=== PATIENT | female | born 1975 | race Caucasian/White ===

== ENCOUNTER 2017-08-12 08:52 | Emergency (ER) | payer MEDICAID, SELFPAY ==
[2017-08-12 09:02] VITALS: BP 109/76; PULSE 87; RESP 18; TEMP 36.4; O2SAT 98; BMI 25.0
--- NOTE | 2017-08-12 09:09 | [facility].EDGENADL ---
ED Disposition Clinical Impression: Postoperative stitch abscess Disposition: Home, Self-Care Condition on Discharge: Good Additional Instructions: You are being provided with a list of physicians available for follow-up of your condition. Please call a physician on this list to arrange a follow-up appointment as soon as possible. Ibuprofen for pain. See your surgeon if redness around incision, fever. Prescriptions: cephALEXin [Keflex 500mg Cap] 500 mg PO QID #40 cap - Critical Care Critical Care Time: No Attestation: On , the high probability of a clinically significant, sudden or life threatening deterioration of the following system(s) required my full and direct attention, intervention and personal management. The time I documented below is in addition to time spent performing reported procedures but includes the following listed in this critical care notation. Medical Decision Making Vital Signs: 08/12/17 09:02 08/12/17 12:17 Temperature 97.6 F 97.8 F Temperature Source Oral Temporal Artery Scan Pulse Rate 75 Pulse Rate [Right Brachial] 87 Respiratory Rate 18 18 Blood Pressure 107/45 Blood Pressure [Right Arm] 109/76 Blood Pressure Mean [Right Arm] 87 Blood Pressure Source Automatic Cuff Blood Pressure Source [Right Arm] Automatic Cuff Blood Pressure Position Sitting Blood Pressure Position [Right Arm] Sitting 02 Sat by Pulse Oximetry 98 Oxygen Delivery Method Room Air Room Air - Lab Data Lab Results 08/12/17 10:05: WBC 6.6, RBC 4.13 L, Hgb 12.9, Hct 38.5, MCV 93.1, MCH 31.2, MCHC 33.5, RDW 13.0, Plt Count 299, MPV 7.1 L, Neut % (Auto) 50.4, Lymph % (Auto) 37.7, [place] % (Auto) 6.4, Eos % (Auto) 4.7, Baso % (Auto) 0.8, Neut # (Auto) 3.3, Lymph # (Auto) 2.5, [place] # (Auto) 0.4, Eos # (Auto) 0.3, Baso # (Auto) 0.1 08/12/17 10:05: Sodium 139, Potassium 3.9, Chloride 105, Carbon Dioxide 25, Anion Gap 12.9, BUN 10, Creatinine 0.63, Estimated Creat Clear 131, Estimated GFR 103, Est GFR ( Amer) 124, Glucose 111 H, Calcium 8.6, Total Bilirubin 0.3, AST 44 H, ALT 77, Alkaline Phosphatase 85, Total Protein 7.6, Albumin 3.6, Globulin 4.0 H, Albumin/Globulin Ratio 0.9 L 08/12/17 10:05: Lipase 100 08/12/17 11:55: Urine Color Yellow, Urine Appearance Clear, Urine pH 6.0, Ur Specific [place] 1.010, Urine Protein Negative, Urine Glucose (UA) Negative, Urine Ketones Negative, Urine Blood Negative, Urine Nitrate Negative, Urine Bilirubin Negative, Urine Urobilinogen 0.2, Ur Leukocyte Esterase Negative, Urine RBC None, Urine WBC None, Ur Squamous Epith Cells Occasional, Urine Bacteria Trace Result diagrams: 08/12/17 10:05 08/12/17 10:05 - CT Data CT Scan: Abdomen, Pelvis Time Received: 11:[address] Reviewed: Yes: I have viewed the radiologist's interpretation Findings Narrative: CT scan interpreted by radiologist: Mild stranding in the periumbilical soft tissue, no abscess. Distended urinary bladder. - Asa Inquiry Pt receiving controlled substance: No General Adult HPI - General Chief complaint: Skin/Abscess/Foreign Body Stated complaint: surgery 3wks ago incision spot red and puffy oozy Mode of Arrival: Ambulatory Limitations: No Limitations Description of Symptoms (Recalled from ER Triage Doc. by RN): gb surgery x 3 weeks ago; has been packing open wound to abd for 3 weeks; took. packing out today and is concerned with appearance of wound - History of Present Illness HPI narrative: Patient had emergency gallbladder surgery just before [place] in [facility]. She says that they had to make an extra incision in her midline which was left open. She has been packing it ever since then. She says that she does not want to go back to see the surgeon who did the surgery. She says that they told her if it got red or painful to come to the emergency room. She says that she has had some redness around that wound and had pus draining from it this morning. She points to t
--- NOTE | 2017-08-12 09:22 | CT_ITS ---
CT abdomen pelvis wo con CLINICAL INDICATION: Recent surgery with abdominal pain with cutaneous erythema, drainage and fever ITS.REASON: post op pain ORDERING PHYSICIAN: Giles Ford MD PATIENT AGE: 42 years COMPARISON: None TECHNIQUE: Axial images obtained with sagittal and coronal reformats. PROCEDURE: Oral Contrast: None IV Contrast: None . FINDINGS: No acute finding in the lung bases. Prior cholecystectomy without ductal dilatation. The liver, spleen, adrenal glands, pancreas, kidneys and ureters have an unremarkable appearance. No intestinal structure or free air. Unremarkable appendix no evidence of diverticulitis. Urinary bladder is distended no obvious bladder calculi. There is mild stranding of the fat in the anterior abdominal wall at the umbilical region. There is some minimal infiltration of the fat in the peritoneum just deep to this area. No obvious drainable abscess. No abnormal fluid collections or acute bony anomalies. IMPRESSION: 1. There is some mild stranding of the fat cutaneous region of the umbilical area and within the peritoneum deep to this region suggesting underlying inflammation. No abscess apparent 2. Distended urinary bladder.
[2017-08-12 10:16] LABS: Basophils # 0.1 K/mm3 (0-0.2); Basophils % 0.8 % (0.1-2.0); Eosinophils # 0.3 K/mm3 (0.0-0.4); Eosinophils % 4.7 % (0.1-12.0); Hematocrit 38.5 % (37.0-47.0); Hemoglobin 12.9 g/dL (12.2-16.2); Lymphocytes # 2.5 K/mm3 (0.7-4.5); Lymphocytes % 37.7 K/mm3 (10-50); Mean Corpuscular HGB Conc 33.5 g/dL (31.8-35.4); Mean Corpuscular Hemoglobin 31.2 pg (27.0-31.2); Mean Corpuscular Volume 93.1 fl (81-99); Mean Platelet Volume 7.1 fl (7.4-10.4); Monocytes # 0.4 K/mm3 (0.1-1.0); Monocytes % 6.4 % (1.7-9.3); Neutrophils # 3.3 K/mm3 (1.8-7.8); Neutrophils % 50.4 % (37.0-80.0); Platelet Count 299 K/mm3 (142-424); Red Blood Count 4.13 M/mm3 (4.20-5.40); White Blood Count 6.6 K/mm3 (4.8-10.8)
[2017-08-12 10:22] LABS: Lipase 100 u/L (73-393)
[2017-08-12 10:29] LABS: Alanine Aminotransferase 77 U/L (12-78); Albumin Level 3.6 gm/dL (3.4-5.0); Albumin/Globulin Ratio 0.9 (1.1-1.8); Alkaline Phosphatase 85 U/L (46-116); Anion Gap 12.9 mEq/L (5-15); Aspartate Amino Transferase 44 U/L (15-37); Bilirubin,Total 0.3 mg/dL (0.2-1.0); Blood Urea Nitrogen 10 mg/dL (7-18); Calcium 8.6 mg/dL (8.5-10.1); Carbon Dioxide 25 mmol/L (21.0-32.0); Chloride 105 mmol/L (98-107); Creatinine Clearance Estimated 131 mL/min (0-300); Creatinine,Serum 0.63 mg/dL (0.55-1.02); Estimated Glomerular Filt Rate 103 ml/min (>60); GFR (African American) 124 ML/MIN (>60); Glucose 111 mg/dL (74-106); Sodium 139 mmol/L (136-145); Total Protein,Serum 7.6 gm/dL (6.4-8.2)
[2017-08-12 10:31] LABS: Potassium 3.9 mmoL/L (3.5-5.1)
[2017-08-12 11:57] LABS: Appearance,Urine CLEAR (Clear); Bilirubin,Urine Negative (Negative); Blood, Urine Negative (Negative); Color,Urine YELLOW (Yellow); Glucose,Urine (UA) Negative (Negative); Ketones,Urine Negative (Negative); Leukocyte Esterase,Urine Negative (Negative); Microscopic, Urine URINE MICROSCOPIC (MICROSCOPIC); Nitrate,Urine Negative (Negative); Protein,Urine Negative (Negative); Urobilinogen,Urine 0.2 EU/dl (0.2)
[2017-08-12 12:14] LABS: Bacteria,Urine Trace /lpf; Squamous Epithelial Cell,Urine Occasional #/hpf (0-5)
[2017-08-12 12:17] VITALS: BP 107/45; PULSE 75; RESP 18; TEMP 36.6; O2SAT 99
== END 2017-08-12 12:17 | disposition home or self-care (01) ==
PROVIDERS: Emergency Provider Emergency Medicine
DX: T81.4XXA Infection following a procedure, initial encounter (principal); L02.211 Cutaneous abscess of abdominal wall; Z90.49 Acquired absence of other specified parts of digestive tract
CPT/HCPCS: 74176; 80053; 81001; 83690; 85025; 99282